=== PATIENT | male | born 1955 | race American Indian/Alaskan Native ===

== ENCOUNTER 2017-07-24 10:36 | Day surgery (SDC) | payer OTHER ==
[~2017-07-24 10:36] MED LIST: ROBINUL ONE
[2017-07-24] MEDS ORDERED: ROBINUL ONE (11:30)
[2017-07-24] MEDS ORDERED: NACL 0.9% 1000 ML 1,000 ML IV SCH (12:00)
--- NOTE | 2017-07-24 12:54 | Anesthesia Consultation ---
Anesthesia Consult and Med Hx Date of service: 07/24/17 - Airway Anesthetic Teeth Evaluation: Partials (upper) ROM Head & Neck: Adequate Mental/Hyoid Distance: Adequate Mallampati Class: Class II Intubation Access Assessment: Probably Good - Pre-Operative Health Status ASA Pre-Surgery Classification: ASA2 Proposed Anesthetic Plan: MAC - Pulmonary Hx Smoking: Yes (SMOKES 1 CIGAR DAILY) - Other Systems Hx Cancer: No - Additional Comments Anesthesia Medical History Comments: hemorrhoids
--- NOTE | 2017-07-24 12:54 | Anesthesia Day of Surgery ---
Anesthesia Day of Surgery - Day of Surgery Patient Examined: Yes Patient H&P Reviewed: Yes Patient is NPO: Yes
[2017-07-24] MEDS ORDERED: DIPRIVAN 10 MG/ML IV ONE ×3 (13:11→14:03)
--- NOTE | 2017-07-24 14:19 | Operative Report ---
Operative Report Operative Report: Date of procedure: 07/24/2017 Procedure: Colonoscopy with Snare polypectomy, Hot Biopsy Polypectomy and submucosal injection Hemorrhoidal band ligation. Attending physician: Fuentes Treadwell MD Category Planner: Fuentes Treadwell MD Indication: Patient is a 61-year-old male who presents for screening colonoscopy. He has a past history of colon polyps. This colonoscopy serves to evaluate patient so that treatment may be directed based on the findings. Consent: Informed consent was obtained after advising the patient and family regarding nature of this procedure, its indications, potential benefits as well as possible complications including but not limited to bleeding perforation and adverse reaction to medication, infection as well as other cardiopulmonary complications. An informed written and verbal consent was then obtained after due opportunity was provided for questions and answers. Monitoring: Patient was monitored continuously with pulse oximetry and electrocardiographic recordings as well as blood pressure recordings. Vital signs remained stable throughout this procedure with no untoward events. Preoperative assessment: Patient was assessed immediately prior to this procedure for capacity to tolerate monitored anesthesia care and moderate sedation as well as general anesthesia. Patient's ASA classification is 2, Mallampati class is 2, Hyomental distance is 3. Instrument: [employer] video colonoscope Medications: Propofol given intravenously in divided doses. For details please refer to anesthesia records. Description of procedure: Patient was placed in the left lateral decubitus position after achieving sedation, a digital rectal examination was performed following which the colonoscope was introduced into the anal verge and advanced to the cecum which was identified by the cecal valve, the appendiceal orifice, as well as by the cecal strap and direct transillumination. The colonoscope was subsequently withdrawn with careful inspection of all mucosal surfaces. Patient tolerated this procedure well and was subsequently taken to the recovery room. The following findings were noted. Findings: Patient had mild very mild diverticulosis of the sigmoid colon. There were 2 flat polyps which measured approximately 5-7 mm in the transverse colon. These were elevated with submucosal injection of saline and removed by snare electrocautery and retrieved. There was an adjoining polyp which was removed by hot biopsy polypectomy. There were 2 diminutive polyps in the sigmoid colon which were removed by hot biopsy polypectomy and retrieved. Patient had prominent internal hemorrhoids. The colonoscope was removed and replaced with the endoscope which was preloaded with the multiband ligator and hemorrhoidal band ligation was performed. 2 bands were applied. Patient tolerated procedure well. There was some densely adherent thick liquid stool in sections of the colon. Impression: Transverse colon polyp status post snare polypectomy and submucosal injection Sigmoid colon polyps status post hot biopsy polypectomy. Mild colonic diverticulosis Retained stool Internal hemorrhoids status post hemorrhoidal band ligation. Plan: : Follow pathology report and repeat colonoscopy in 5 years. Daily sitz baths. High-fiber diet. Patient to apply lidocaine ointment 5% per rectum every 6 hours as needed. Anusol HC suppositories per rectum every night. Patient to use stool softeners as needed. Miralax 17 g in 8 ounce glass of water has been prescribed. Tramadol 50 mg every 6 hours as needed for pain. Patient is scheduled for further outpatient follow-up.
--- NOTE | 2017-07-24 14:20 | Discharge Summary ---
Short Stay Discharge Plan Activity: advance as tolerated Weight Bearing Status: Weight Bear as Tolerated Diet: regular Additional Instructions: Post Sedation D/C Instructions When you return home you may resume your regular diet unless otherwise directed. -Go directly home from the hospital and rest quietly. You may resume normal activities tomorrow. -Do NOT drive, return to work, operate any machinery or make any important personal or business decisions today. -Do NOT drink any alcohol or take nerve or sleeping drugs. They add to the effects of the medicine still present in your body. Follow up with Dr. Treadwell in 2 weeks to obtain pathology results and treatment plan. Follow up with: ALMA WYNN JR, MD [Primary Care Provider] - 7 Days
--- NOTE | 2017-07-24 14:24 | Operative Report ---
Operative Report Operative Report: Date of procedure: 07/24/2017 Procedure: Colonoscopy with Snare polypectomy, Hot Biopsy Polypectomy and submucosal injection Hemorrhoidal band ligation. Attending physician: Fuentes Treadwell MD Dry Wall Sprayer: Fuentes Treadwell MD Indication: Patient is a 61-year-old male who presents with anorectal discomfort , and symptomatic internal hemorrhoids. He has a past history of colon polyps and had a colonoscopy 8 months ago. On the colonoscopy, patient had substantial retained stool. Given this overall symptomatology and given a relatively poor colonoscopic preparation on his last examination in light of findings of multiple polyps, a colonoscopy is done to evaluate patient further and also to perform hemorrhoidal band ligation. Consent: Informed consent was obtained after advising the patient and family regarding nature of this procedure, its indications, potential benefits as well as possible complications including but not limited to bleeding perforation and adverse reaction to medication, infection as well as other cardiopulmonary complications. An informed written and verbal consent was then obtained after due opportunity was provided for questions and answers. Monitoring: Patient was monitored continuously with pulse oximetry and electrocardiographic recordings as well as blood pressure recordings. Vital signs remained stable throughout this procedure with no untoward events. Preoperative assessment: Patient was assessed immediately prior to this procedure for capacity to tolerate monitored anesthesia care and moderate sedation as well as general anesthesia. Patient's ASA classification is 2, Mallampati class is 2, Hyomental distance is 3. Instrument: [employer] video colonoscope Medications: Propofol given intravenously in divided doses. For details please refer to anesthesia records. Description of procedure: Patient was placed in the left lateral decubitus position after achieving sedation, a digital rectal examination was performed following which the colonoscope was introduced into the anal verge and advanced to the cecum which was identified by the cecal valve, the appendiceal orifice, as well as by the cecal strap and direct transillumination. The colonoscope was subsequently withdrawn with careful inspection of all mucosal surfaces. Patient tolerated this procedure well and was subsequently taken to the recovery room. The following findings were noted. Findings: Patient had mild very mild diverticulosis of the sigmoid colon. There were 2 flat polyps which measured approximately 5-7 mm in the transverse colon. These were elevated with submucosal injection of saline and removed by snare electrocautery and retrieved. There was an adjoining polyp which was removed by hot biopsy polypectomy. There were 2 diminutive polyps in the sigmoid colon which were removed by hot biopsy polypectomy and retrieved. Patient had prominent internal hemorrhoids. The colonoscope was removed and replaced with the endoscope which was preloaded with the multiband ligator and hemorrhoidal band ligation was performed. 2 bands were applied. Patient tolerated procedure well. There was some densely adherent thick liquid stool in sections of the colon. Impression: Transverse colon polyp status post snare polypectomy and submucosal injection Sigmoid colon polyps status post hot biopsy polypectomy. Mild colonic diverticulosis Retained stool Internal hemorrhoids status post hemorrhoidal band ligation. Plan: : Follow pathology report and repeat colonoscopy in 5 years. Daily sitz baths. High-fiber diet. Patient to apply lidocaine ointment 5% per rectum every 6 hours as needed. Anusol HC suppositories per rectum every night. Patient to use stool softeners as needed. Miralax 17 g in 8 ounce glass of water has been prescribed. Tramadol 50 mg every 6 hours as needed for pain. Patient is scheduled for further outpatient follow-up.
[2017-07-24 14:28] VITALS: BP 140/81
--- NOTE | 2017-07-24 14:52 | Post Anesthesia Evaluation ---
- Post Anesthesia Evaluation Patient Participated: Yes Airway Patent: Yes Stable Respiratory Function: Yes Nausea/Vomiting: No Temp > 96.8F: Yes Pain Manageable: Yes Adequeate Hydration: Yes Anesthesia Complications: No
== END 2017-07-24 10:37 | disposition home or self-care (01) ==
LOC: GIO 10:36
PROVIDERS: ATTEND Internal Medicine Gastroenterology
DX: K63.5 Polyp of colon (principal); K64.8 Other hemorrhoids; K57.30 Diverticulosis of large intestine without perforation or abscess without bleeding; F17.210 Nicotine dependence, cigarettes, uncomplicated
CPT/HCPCS: 45381; 45384; 45385; 45398; 88305; J2704; J7030